=== PATIENT | female | born 1940 | race Caucasian/White ===

== ENCOUNTER 2023-11-11 09:48 | Emergency (ER) | payer MEDICARE ==
[2023-11-11 10:16] LABS: #Basophils 0.1 thou/uL (0.0-0.2); #Monocytes 0.6 thou/uL (0.11-0.59); #Neutrophils 5.9 thou/uL (1.40-6.50); %Basophils 1.2 % (0.0-1.0); %Eosinophils 0.4 % (0.0-10.0); %Lymphocytes 23.4 % (21.0-51.0); %Monocytes 6.8 % (0.0-10.0); %Neutrophils 68.2 % (42.0-75.0); Hematocrit 45.8 % (36.0-47.0); Hemoglobin 14.7 g/dL (12.0-16.0); Mean Corpuscular Hemoglobin 27.9 pg (27.0-31.0); Mean Corpuscular Volume 87.2 fl (78.0-98.0); Mean Platelet Volume 8.5 fL (7.4-10.4); Platelet Count 192 10x3/uL (130-400); RBC Distribution Width 11.7 % (11.5-14.5); Red Blood Cell (RBC) Count 5.26 mill/uL (4.20-5.40); White Blood Cell (WBC) Count 8.7 10x3/uL (4.8-10.8)
[2023-11-11] MEDS ORDERED: Aspirin Chewable 81 MG TAB ONE (10:16)
[2023-11-11 10:27] LABS: INR-International Normal Ratio 0.9; Prothrombin Time 11.8 sec (12.0-14.7)
[2023-11-11 10:28] LABS: ALT (SGPT) 13 U/L (8-55); AST (SGOT) 20 U/L (5-34); Albumin 4.4 g/dL (3.4-4.8); Alkaline Phosphatase 56 U/L (40-110); Anion Gap 16 mmol/L (10-20); BUN (Urea Nitrogen) 25 mg/dL (9.8-20.1); Bilirubin, Total 0.9 mg/dL (0.2-1.2); Calc. Creatinine Clearance 0 mL/min (70-130); Calcium 9.6 mg/dL (7.8-10.44); Carbon Dioxide 25 mmol/L (23-31); Chloride 104 mmol/L (98-107); Estimated GFR 37; Globulin 2.8 g/dL (2.4-3.5); Glucose 119 mg/dL (83-110); PTT 26.7 sec (22.9-36.1); Potassium 3.6 mmol/L (3.5-5.1); Protein, Total 7.2 g/dL (5.8-8.1); Sodium 141 mmol/L (136-145)
[2023-11-11 10:31] LABS: Troponin I 0.011 ng/mL (< 0.028)
[2023-11-11 11:14] LABS: Bilirubin Negative (Negative); Blood, Urine Trace (Negative); Clarity Clear (Clear); Glucose, Urine (Dipstick) Negative (Negative); Ketone, Urine Negative (Negative); Leukocyte Negative (Negative); Nitrite Negative (Negative); Protein, Urine (Dipstick) Negative (Neg-Trace); Specific Gravity, Urine 1.015 (1.005-1.030); Urobilinogen 0.2 mg/dL (Less than 2); pH, Urine 6.5 (5.0-9.0)
[2023-11-11 11:23] LABS: Bacteria/HPF None Seen HPF (None Seen); RBC/HPF 0-3 HPF (0-3); Squamous Epithelial 0-3 HPF (0-3); WBC/HPF None Seen HPF (0-3)
[2023-11-11] MEDS ORDERED: Sodium Chloride 0.9% 500 ML ONE (12:06)
[2023-11-11] MEDS ORDERED: Apixaban 5 MG TAB ONE (13:13)
[2023-11-11 13:29] LABS: Anion Gap 15 mmol/L (10-20); BUN (Urea Nitrogen) 21 mg/dL (9.8-20.1); Calc. Creatinine Clearance 0 mL/min (70-130); Calcium 8.9 mg/dL (7.8-10.44); Carbon Dioxide 24 mmol/L (23-31); Chloride 105 mmol/L (98-107); Estimated GFR 48; Glucose 107 mg/dL (83-110); Potassium 3.5 mmol/L (3.5-5.1); Sodium 140 mmol/L (136-145)
[2023-11-11 13:36] LABS: Troponin I 0.012 ng/mL (< 0.028)
[2023-11-11] MEDS ORDERED: Metoprolol Tartrate 25 MG TAB ONE (13:49)
== END 2023-11-11 14:05 | disposition home or self-care (01) ==
LOC: NAV ERS 09:48
DX: I48.91 Unspecified atrial fibrillation (principal); I10 Essential (primary) hypertension; Z79.899 Other long term (current) drug therapy
CPT/HCPCS: 71045; 80048; 81001; 83880; 84484 ×2; 85610; 85730; 93005; 99285; J7030; 80053; 84443; 85025

== ENCOUNTER 2023-11-12 12:23 | Emergency (ER) | payer MEDICARE | END 2023-11-12 14:15 | disposition home or self-care (01) | LOC: NAV ERS 12:23 | DX: R00.1 Bradycardia, unspecified (principal); I10 Essential (primary) hypertension; Z79.899 Other long term (current) drug therapy; Z79.02 Long term (current) use of antithrombotics/antiplatelets ==